=== PATIENT | female | born 1995 | race American Indian/Alaskan Native ===

== ENCOUNTER → 2018-05-31 | Outpatient (CLI) | payer OTHER ==
[~2018-05-31] MED LIST: Colace250 MG PO; IBUP800 PO; OXYACE5T PO; Veetids 500500 MG PO; Verotin-Gr Cap1 EACH PO
== END | disposition home or self-care (01) ==
LOC: LAB SHORT 16:57 → LAB 16:57
DX: Z34.80 Encounter for supervision of other normal pregnancy, unspecified trimester (principal)
CPT/HCPCS: 87081; 87653

== ENCOUNTER 2018-08-02 19:29 | Emergency (ER) | payer OTHER ==
[~2018-08-02] VITALS: Ht 162.6 cm; Wt 53.5 kg
[~2018-08-02 19:29] MED LIST changes: +FERSU90EL PO
[2018-08-02 20:15] LABS: BASOPHILS ABSOLUTE AUTO 0.03 K/mm3 (0.00-0.23); BASOPHILS PERCENT AUTO 0 % (0-2); EOSINOPHILS ABSOLUTE AUTO 0.15 K/mm3 (0.00-0.68); EOSINOPHILS PERCENT AUTO 1 % (0-6); Hematocrit 37.1 % (33.0-51.0); Hemoglobin 12.2 g/dL (11.5-16.0); IMMATURE GRAN ABSOLUTE AUTO 0.04 K/mm3 (0.00-0.10); IMMATURE GRAN PERCENT AUTO 0 % (0-1); LYMPHOCYTES ABSOLUTE AUTO 1.93 K/mm3 (0.84-5.20); LYMPHOCYTES PERCENT AUTO 15 % (21-46); MONOCYTES ABSOLUTE AUTO 0.98 K/mm3 (0.16-1.47); MONOCYTES PERCENT AUTO 8 % (4-13); Mean Corpuscular HGB 30.1 pg (26.0-34.0); Mean Corpuscular HGB Conc 32.9 g/dL (31.5-36.5); Mean Corpuscular Volume 92 fL (80-100); Mean Platelet Volume 9.9 fL (9.1-12.4); NEUTROPHILS ABSOLUTE AUTO 9.37 K/mm3 (1.96-9.15); NEUTROPHILS PERCENT AUTO 75 % (41-73); Platelet Count 224 K/mm3 (150-400); RDW Coefficient Variation 12.8 % (11.7-14.2); RDW Standard Deviation 43.2 fL (35.1-46.3); Red Blood Cell Count 4.05 M/mm3 (3.80-5.20)
[2018-08-02 20:27] LABS: Alanine Aminotransfer (ALT/SGP 25 U/L (12-78); Albumin, Blood 3.8 g/dL (3.4-5.0); Albumin/Globulin Ratio 1.1 (0.8-1.8); Alk Phos 112 U/L (50-136); Anion Gap 8 mmol/L (6-16); Aspartate Aminotrans (AST/SGOT 17 U/L (12-37); Bilirubin, Total 0.4 mg/dL (0.1-1.0); Blood Urea Nitrogen 7 mg/dL (8-24); CO2, Blood 25 mmol/L (21-32); Calcium, Blood 8.8 mg/dL (8.5-10.1); Chloride, Blood 106 mmol/L (98-108); Globulin, Blood 3.5 g/dL (2.2-4.0); Glomerular Filtration Rate >60 (60-); Glucose, Blood 93 mg/dL (70-99); Potassium, Blood 3.2 mmol/L (3.5-5.5); Sodium, Blood 139 mmol/L (136-145); Total Protein, Blood 7.3 g/dL (6.4-8.2)
[2018-08-02 20:29] LABS: Source, Urine Clean Catch
[2018-08-02 20:38] LABS: Bilirubin, Urine Neg (Neg); Blood, Urine 5+ (Neg); Glucose Qualitative, Urine Neg (Neg); Ketones, Urine Neg (Neg); Leukocyte Esterase, Urine 3+ (Neg); Nitrite, Urine Pos (Neg); Protein, Urine 3+ (Neg); Specific Gravity, Urine 1.015 (1.003-1.022); Urobilinogen, Urine NORM (Normal)
[2018-08-02 20:44] LABS: Appearance, Urine Turbid (Clear); Color, Urine Yellow (P-Yellow)
[2018-08-02 20:45] LABS: White Blood Cells, Urine TNTC /hpf (0-5)
[2018-08-02 20:51] LABS: Bacteria Many /hpf; Mucus Light (0-Heavy); Squamous Epithelial Cells Few /hpf (Few)
[2018-08-02] MEDS ORDERED: CEFD300 PO (21:32)
== END 2018-08-02 22:17 | disposition home or self-care (01) ==
LOC: ER 19:29
PROVIDERS: Emergency Medicine
DX: N12 Tubulo-interstitial nephritis, not specified as acute or chronic (principal); F17.210 Nicotine dependence, cigarettes, uncomplicated; Z91.048 Other nonmedicinal substance allergy status; Z91.011 Allergy to milk products; Z79.899 Other long term (current) drug therapy
CPT/HCPCS: 36415; 80053; 81001; 81025; 85025; 87077; 87086; 87186; 93005; 93010; 96361; 96365; 99284-25; J0696; J7030

== ENCOUNTER → 2019-02-26 | Outpatient (CLI) | payer OTHER ==
[~2019-02-26] MED LIST changes: +CEFD300 PO
[2019-03-01 02:09] LABS: CHLAMYDIA TRACHOMATIS, NAA Negative (Negative); NEISSERIA GONORRHOEAE, NAA Negative (Negative)
== END | disposition home or self-care (01) ==
LOC: LAB SHORT 15:18 → LAB 15:18
PROVIDERS: Advanced Practice Midwife
DX: Z11.3 Encounter for screening for infections with a predominantly sexual mode of transmission (principal)
CPT/HCPCS: 87491; 87591

== ENCOUNTER 2019-06-24 15:09 | Inpatient (IN) | payer OTHER ==
[~2019-06-24] VITALS: Ht 162.6 cm; Wt 62.5 kg
[2019-06-24 15:53] LABS: BASOPHILS ABSOLUTE AUTO 0.02 K/mm3 (0.00-0.23); BASOPHILS PERCENT AUTO 0 % (0-2); EOSINOPHILS ABSOLUTE AUTO 0.14 K/mm3 (0.00-0.68); EOSINOPHILS PERCENT AUTO 1 % (0-6); Hematocrit 38.1 % (33.0-51.0); Hemoglobin 12.7 g/dL (11.5-16.0); IMMATURE GRAN ABSOLUTE AUTO 0.06 K/mm3 (0.00-0.10); IMMATURE GRAN PERCENT AUTO 1 % (0-1); LYMPHOCYTES ABSOLUTE AUTO 2.09 K/mm3 (0.84-5.20); LYMPHOCYTES PERCENT AUTO 19 % (21-46); MONOCYTES ABSOLUTE AUTO 0.79 K/mm3 (0.16-1.47); MONOCYTES PERCENT AUTO 7 % (4-13); Mean Corpuscular HGB 31.1 pg (26.0-34.0); Mean Corpuscular HGB Conc 33.3 g/dL (31.5-36.5); Mean Corpuscular Volume 93 fL (80-100); Mean Platelet Volume 11.6 fL (9.1-12.4); NEUTROPHILS ABSOLUTE AUTO 7.78 K/mm3 (1.96-9.15); NEUTROPHILS PERCENT AUTO 71 % (41-73); Platelet Count 237 K/mm3 (150-400); RDW Coefficient Variation 13.6 % (11.7-14.2); RDW Standard Deviation 46.3 fL (35.1-46.3); Red Blood Cell Count 4.08 M/mm3 (3.80-5.20); White Blood Cell Count 10.88 K/mm3 (4.00-11.30)
[2019-06-24] MEDS ORDERED: PRENATAL TABLE1 EAC2 (16:02)
[2019-06-24 18:58] LABS: U Amphetamine Screen Not Detected; U Barbituate Screen Not Detected; U Benzodiazapine Screen Not Detected; U Buprenorphine Screen Not Detected; U Cannabinoids Screen DETECTED; U Cocaine Screen Not Detected; U Methadone Screen Not Detected; U Methamphetamine Screen Not Detected; U Opiates Screen Not Detected; U Oxycodone Screen Not Detected; U Phencyclidine Screen Not Detected; U Propoxyphene Screen Not Detected
--- NOTE | 2019-06-25 08:03 | NUR ---
talked to mom about not bathing baby at this time until we are done checking blood sugars. that studies show that not bathing baby will help with regulating blood sugars. mom is fine waiting to bath baby if it will help
[2019-06-25 12:58] LABS: Hematocrit 33.9 % (33.0-51.0); Hemoglobin 11.3 g/dL (11.5-16.0); Mean Corpuscular HGB 31.4 pg (26.0-34.0); Mean Corpuscular HGB Conc 33.3 g/dL (31.5-36.5); Mean Corpuscular Volume 94 fL (80-100); Mean Platelet Volume 11.4 fL (9.1-12.4); Platelet Count 197 K/mm3 (150-400); RDW Coefficient Variation 13.6 % (11.7-14.2); RDW Standard Deviation 46.3 fL (35.1-46.3); White Blood Cell Count 14.65 K/mm3 (4.00-11.30)
--- NOTE | 2019-06-25 20:44 | NUR ---
06-25-191999 BABY ASLEEP IN BED WITH MOM, PT AWAKENED AND BABY MOVED TO CRIB AND ENCOURAGE PT TO FOLLOW THE NO [facility]LEEP[facility] POLICY
--- NOTE | 2019-06-26 00:20 | NUR ---
06-26-19 0015 MOM ASLEEP WITH BABY ASLEEP IN HER ARMS. AWAKENED MOM AND ASKED IF i COULD PLACE BABY IN CRIB AND AGAIN, REMINDFED HER TO NOT CO-SLEEP FOR BABY SAFTY
[2019-06-26] MEDS ORDERED: IBUP800 PO (09:52)
--- NOTE | 2019-06-26 13:09 | NUR ---
DISCHARGE INSTRUCTIONS REVIEWED WITH PATIENT, MATERNAL AND TEACHING DONE. PATIENT VERBALIZED UNDERSTANDING, DENIES ANY FURTHER QUESTIONS OR CONCERNS. BANDS MATCHED.
--- NOTE | 2019-06-28 14:16 | NUR ---
CANCELLED [facility] VISIT TODAY DUE TO NO RIDE, AND CAN'T GET A RIDE UNTIL MONDAY, APPT RESCHEDULED TO 1099. SHE STATES HER MILK IS IN, BABY HAS A GOOD LATCH, AND HE IS BF FOR ABOUT 10 MINUTES Q1-2 HOURS, STOOLS ARE STILL DARK. STATES EYES ARE WHITE, SKIN MOSTLY PINK, DOESN'T LOOK YELLOW. INSTRUCT TO CALL IF SHE CAN GET A RIDE EARLIER THAN MONDAY AND WE WILL FIT AN APPT IN.
--- NOTE | 2019-07-02 10:00 | NUR ---
LATE ENTRY PER TELEVISION MAINTENANCE WORKER MISTI MARCIAL PATIENT CALLED AT 1000 TO SAY WAS RUNNING LATE WOULD BE HERE, WANTED TO MAKE SURE WE WOULD SEE HER IF LATE. WAS TOLD YES WE WOULD STILL SEE THEM.
--- NOTE | 2019-07-02 14:00 | NUR ---
LATE ENTRY PER [facility] SREE MEJIAS PATIENT NEVER SHOWED, TRIED TO CALL HER ON HER LISTED CELLPHONE [phone] NO ANSWER AND VOICE MAIL NOT SET UP
--- NOTE | 2019-07-03 08:46 | NUR ---
24 HOUR HOTLINE NOTIFIED THAT PT WAS CLEARED AT DISCHARGE BY CPS, SCHEDULED FOLLOW UP APPOINTMENT PER DR ORDER AT DISCHARGE FOR 48 HOUR APPOINTMENT RELATED TO JAUNDICE LEVEL MORE THAN 75% WAS 5% WEIGHT LOSS AT DISCHARGE AND CSD WORKER EDUARDO OLGUIN. PT CANCELED 06/28 APPOINTMENT R/T NO RIDE RESCHEDULED TELEPHONE CONSULTATION DONE R/T BABY STATUS, CHANGED APPOINTMENT TO 07/02 PER PT 1ST DAY TO HAVE A RIDE, REQUESTED PATIENT TO CALL IF ABLE TO COME SOONER WE WOULD FIT HER IN. PT CALLED 07/02 AT 1000 1 HOUR BEFORE SCHEDULED APPOINTMENT TO SAY SHE WOULD BE LATE AND WOULD WE STILL SEE THEM, WE TOLD HER YES TO COME IN. NEVER SHOWED PEG RANDELL BALBUENA LC IN CLINIC ATTEMPTED TO CALL PT - NO ANSWER AND VOICE MAIL NOT SET UP
--- NOTE | 2019-07-08 16:11 | NUR ---
[facility] SPOKE WITH EDUARDO AT [facility] RELATED TO APPOINTMENTS THAT WERE MISSED AND NO SHOWS
== END 2019-06-26 13:05 | disposition home or self-care (01) | DRG 807 ==
LOC: BC 15:09 → OBS 15:09 → BC 15:10 → OBS 15:10 → BC 19:23
PROVIDERS: ADMIT Advanced Practice Midwife
PROC: 10E0XZZ Delivery of Products of Conception, External Approach (ICD-10-PCS; principal; 2019-06-25)
PROC: 3E0R3BZ Introduction of Anesthetic Agent into Spinal Canal, Percutaneous Approach (ICD-10-PCS; 2019-06-25)
DX: O36.5930 Maternal care for other known or suspected poor fetal growth, third trimester, not applicable or unspecified (principal); Z37.0 Single live birth; Z3A.39 39 weeks gestation of pregnancy; O99.334 Smoking (tobacco) complicating childbirth; F17.210 Nicotine dependence, cigarettes, uncomplicated
CPT/HCPCS: 36415; 51702; 85025; 85027; J2001; J2210; J2590; J3010; J7120

== ENCOUNTER 2019-12-14 12:52 | Emergency (ER) | payer OTHER ==
[~2019-12-14] VITALS: Ht 162.6 cm; Wt 56.2 kg
[~2019-12-14 12:52] MED LIST changes: +PRENATAL TABLE1 EAC2
[2019-12-14 13:27] LABS: BASOPHILS ABSOLUTE AUTO 0.03 K/mm3 (0.00-0.23); BASOPHILS PERCENT AUTO 0 % (0-2); EOSINOPHILS ABSOLUTE AUTO 0.14 K/mm3 (0.00-0.68); EOSINOPHILS PERCENT AUTO 1 % (0-6); Hematocrit 38.9 % (33.0-51.0); Hemoglobin 12.5 g/dL (11.5-16.0); IMMATURE GRAN ABSOLUTE AUTO 0.05 K/mm3 (0.00-0.10); IMMATURE GRAN PERCENT AUTO 0 % (0-1); LYMPHOCYTES ABSOLUTE AUTO 1.44 K/mm3 (0.84-5.20); LYMPHOCYTES PERCENT AUTO 10 % (21-46); MONOCYTES ABSOLUTE AUTO 0.43 K/mm3 (0.16-1.47); MONOCYTES PERCENT AUTO 3 % (4-13); Mean Corpuscular HGB 30.6 pg (26.0-34.0); Mean Corpuscular HGB Conc 32.1 g/dL (31.5-36.5); Mean Corpuscular Volume 95 fL (80-100); Mean Platelet Volume 10.4 fL (9.1-12.4); NEUTROPHILS ABSOLUTE AUTO 11.69 K/mm3 (1.96-9.15); NEUTROPHILS PERCENT AUTO 85 % (41-73); Platelet Count 188 K/mm3 (150-400); RDW Coefficient Variation 12.2 % (11.7-14.2); RDW Standard Deviation 43.1 fL (35.1-46.3); Red Blood Cell Count 4.08 M/mm3 (3.80-5.20); White Blood Cell Count 13.78 K/mm3 (4.00-11.30)
[2019-12-14 13:34] LABS: Alanine Aminotransfer (ALT/SGP 16 U/L (12-78); Albumin, Blood 3.8 g/dL (3.4-5.0); Albumin/Globulin Ratio 1.2 (0.8-1.8); Alk Phos 93 U/L (50-136); Anion Gap 5 mmol/L (6-16); Aspartate Aminotrans (AST/SGOT 14 U/L (12-37); Bilirubin, Total 0.3 mg/dL (0.1-1.0); Blood Urea Nitrogen 13 mg/dL (8-24); Bun/Creatinine Ratio 24.3 (12.0-20.0); CO2, Blood 21 mmol/L (21-32); Calcium, Blood 8.2 mg/dL (8.5-10.1); Chloride, Blood 116 mmol/L (98-108); Creatinine, Blood 0.54 mg/dL (0.40-1.00); Globulin, Blood 3.3 g/dL (2.2-4.0); Glomerular Filtration Rate >60 (60-); Glucose, Blood 80 mg/dL (70-99); Potassium, Blood 4.3 mmol/L (3.5-5.5); Sodium, Blood 142 mmol/L (136-145); Total Protein, Blood 7.1 g/dL (6.4-8.2)
[2019-12-14 14:26] LABS: Source, Urine Clean Catch
[2019-12-14 14:30] LABS: Appearance, Urine Clear (Clear); Bilirubin, Urine Neg (Neg); Blood, Urine 1+ (Neg); Color, Urine Yellow (P-Yellow); Glucose Qualitative, Urine Neg (Neg); Ketones, Urine Neg (Neg); Leukocyte Esterase, Urine Neg (Neg); Nitrite, Urine Neg (Neg); Protein, Urine Neg (Neg); Urobilinogen, Urine NORM (Normal)
[2019-12-14 15:31] LABS: Bacteria Few /hpf; Squamous Epithelial Cells Mod /hpf (Few); White Blood Cells, Urine 0-2 /hpf (0-5)
== END 2019-12-14 15:35 | disposition home or self-care (01) ==
LOC: ER 12:52
PROVIDERS: Emergency Medicine
DX: R55 Syncope and collapse (principal); Z88.8 Allergy status to other drugs, medicaments and biological substances
CPT/HCPCS: 36415; 80053; 81001; 85025; 93005; 93010; 99284-25

== ENCOUNTER → 2020-10-14 | Outpatient (CLI) | payer OTHER ==
[~2020-10-14] MED LIST changes: +Flonase 0.05% N16 GM
[2020-10-16 01:08] LABS: CHLAMYDIA TRACHOMATIS, NAA Negative (Negative)
== END | disposition home or self-care (01) ==
LOC: LAB 14:13
PROVIDERS: Advanced Practice Midwife
DX: Z01.419 Encounter for gynecological examination (general) (routine) without abnormal findings (principal); Z11.3 Encounter for screening for infections with a predominantly sexual mode of transmission
CPT/HCPCS: 87491; 87591; G0123

== ENCOUNTER → 2020-11-30 | Outpatient (CLI) | payer OTHER ==
[2020-11-30 15:39] LABS: BASOPHILS ABSOLUTE AUTO 0.03 K/mm3 (0.00-0.23); BASOPHILS PERCENT AUTO 0 % (0-2); EOSINOPHILS ABSOLUTE AUTO 0.24 K/mm3 (0.00-0.68); EOSINOPHILS PERCENT AUTO 2 % (0-6); Hematocrit 34.8 % (33.0-51.0); IMMATURE GRAN ABSOLUTE AUTO 0.06 K/mm3 (0.00-0.10); IMMATURE GRAN PERCENT AUTO 1 % (0-1); LYMPHOCYTES ABSOLUTE AUTO 1.66 K/mm3 (0.84-5.20); LYMPHOCYTES PERCENT AUTO 16 % (21-46); MONOCYTES ABSOLUTE AUTO 0.76 K/mm3 (0.16-1.47); MONOCYTES PERCENT AUTO 7 % (4-13); Mean Corpuscular HGB 30.1 pg (26.0-34.0); Mean Corpuscular HGB Conc 31.6 g/dL (31.5-36.5); Mean Corpuscular Volume 95 fL (80-100); Mean Platelet Volume 10.6 fL (9.1-12.4); NEUTROPHILS ABSOLUTE AUTO 7.97 K/mm3 (1.96-9.15); NEUTROPHILS PERCENT AUTO 74 % (41-73); Platelet Count 268 K/mm3 (150-400); RDW Coefficient Variation 13.8 % (11.7-14.2); RDW Standard Deviation 48.1 fL (35.1-46.3); Red Blood Cell Count 3.66 M/mm3 (3.80-5.20); White Blood Cell Count 10.72 K/mm3 (4.00-11.30)
== END | disposition home or self-care (01) ==
LOC: LAB 14:18
PROVIDERS: Advanced Practice Midwife
DX: O09.92 Supervision of high risk pregnancy, unspecified, second trimester (principal)
CPT/HCPCS: 82950; 85025

== ENCOUNTER 2021-02-18 05:46 | Inpatient (IN) | payer OTHER ==
[~2021-02-18] VITALS: Ht 162.6 cm; Wt 71.3 kg
[~2021-02-18 05:46] MED LIST changes: -Flonase 0.05% N16 GM
[2021-02-18 06:31] LABS: BASOPHILS ABSOLUTE AUTO 0.04 K/mm3 (0.00-0.23); BASOPHILS PERCENT AUTO 0 % (0-2); EOSINOPHILS ABSOLUTE AUTO 0.28 K/mm3 (0.00-0.68); EOSINOPHILS PERCENT AUTO 2 % (0-6); Hemoglobin 11.2 g/dL (11.5-16.0); IMMATURE GRAN ABSOLUTE AUTO 0.15 K/mm3 (0.00-0.10); IMMATURE GRAN PERCENT AUTO 1 % (0-1); LYMPHOCYTES ABSOLUTE AUTO 2.41 K/mm3 (0.84-5.20); LYMPHOCYTES PERCENT AUTO 20 % (21-46); MONOCYTES ABSOLUTE AUTO 0.92 K/mm3 (0.16-1.47); MONOCYTES PERCENT AUTO 8 % (4-13); Mean Corpuscular HGB 29.8 pg (26.0-34.0); Mean Corpuscular HGB Conc 32.9 g/dL (31.5-36.5); Mean Corpuscular Volume 90 fL (80-100); NEUTROPHILS ABSOLUTE AUTO 8.49 K/mm3 (1.96-9.15); NEUTROPHILS PERCENT AUTO 69 % (41-73); Platelet Count 266 K/mm3 (150-400); RDW Standard Deviation 52.2 fL (35.1-46.3); Red Blood Cell Count 3.76 M/mm3 (3.80-5.20); White Blood Cell Count 12.29 K/mm3 (4.00-11.30)
[2021-02-18 08:07] LABS: U Amphetamine Screen Not Detected; U Barbituate Screen Not Detected; U Benzodiazapine Screen Not Detected; U Buprenorphine Screen Not Detected; U Cannabinoids Screen DETECTED; U Cocaine Screen Not Detected; U Methadone Screen Not Detected; U Methamphetamine Screen Not Detected; U Opiates Screen Not Detected; U Oxycodone Screen Not Detected; U Phencyclidine Screen Not Detected; U Propoxyphene Screen Not Detected
[2021-02-19 06:05] LABS: Hematocrit 31.8 % (33.0-51.0); Hemoglobin 10.2 g/dL (11.5-16.0); Mean Corpuscular HGB 29.5 pg (26.0-34.0); Mean Corpuscular HGB Conc 32.1 g/dL (31.5-36.5); Mean Corpuscular Volume 92 fL (80-100); Mean Platelet Volume 11.1 fL (9.1-12.4); Platelet Count 231 K/mm3 (150-400); RDW Coefficient Variation 16.3 % (11.7-14.2); RDW Standard Deviation 54.1 fL (35.1-46.3); Red Blood Cell Count 3.46 M/mm3 (3.80-5.20); White Blood Cell Count 13.23 K/mm3 (4.00-11.30)
--- NOTE | 2021-02-19 10:39 | NUR ---
02-19-21 0730 woke pt up to bring in her breakfast and do morning assessment, pt c/o headache that she has just noted. Pt stated she was going to try to sleep a bit more while baby was sleeping
--- NOTE | 2021-02-19 10:50 | NUR ---
02/19/21 0800 pt medicated with Tylenol 1000mg po and given ice back for back of her neck 0830 pt staes that pain medicind did not help at all, encouraged po fluids and eating [address] Carrizales consulted about possible spinal headache as pt now states that along with her headache worsening, she also feels like her ears are plugged "like shes underwater" and her vision is slightly blurry. plan to do blood patch by Dr Carrizales 1020 pt sitting on side of bed for procedure, LR infusing, blood collected by sterile and handed to Dr Carrizales for procedure. 1030 pt laying down flat, IV infusing VS Q15 min
--- NOTE | 2021-02-19 11:58 | NUR ---
02-19-21 1040 after HOB slowly raised, pt ambulated to BR with no problems, denies headache, visual disturbances, or plugged ears
--- NOTE | 2021-02-19 17:58 | NUR ---
02/19/21 0900 RECIEVED CALLS FROM 3 DIFFERENT CPS WORKERS ASKING WHAT TIME BABY WILL BE DISCHARGED TODAY, THAT THEY ARE PLANNING TO TAKE BABY INTO [facility]UST[facility]. THEY WERE TOLD THAT THE BABY WILL BE 24 HOURS AT 1430 AND AFTER THE 24 HR TESTING IS DONE AND RESULTS CALLED TO , THEN THE BABY CAN BE DISCHARGED. 1310 RN INTO ROOM TO SIT WITH BABY WHILE MOM ON A COURT CALL. 1330 LEAH JACKSON CPS WORKER HERE AND AWAITING BABYS DISCHARGE 1430 RN INTO ROOM TO DO BABY 24 HOUR TESTING WHILE MOM CONTINUES ON PHONE CALL WITH COURT 1530 MOMS PHONE CALL FINISHED, PREPARATIONS FOR DISCHARGE, MOM UNAWARE THAT CPS HERE 1630 DC INSTRUCTIONS TO MOM AND CPS WORKER INTO ROOM WITH SECURITY STANDING IN GUPTA IF NEEDED. MOM VERY EMOTIONAL AND SAID "YOURE NOT GOING TO LET ME TAKE HIM HOME ARE YOU? i COULD PUNCH YOU. IM GOING TO TAKE MY TIME." RN AND WORKER SAID THAT SHE COULD TAKE LONG SHE NEEDED. 1650 MOM DISCHARGED, AND ESCORTED OUT TO MEET SO AT ENTRANCE 1700 BABY GIVEN THOROUGH BATH, HUGS ALARM OFF, DIAPERED CHANGED, INSTRUCTIONS GIVEN TO WORKER, APPOINTMENT TO FOLLOW UP AT [facility], AND INSTRUCTIONS SIGNED BY LEAH JACKSON CPS WORKER 1725 CPS WORKER AND BABY ESCORTED TO FRONT ENTRANCE AND DISCHARGED
[2021-05-10] MEDS ORDERED: Flonase 0.05% N16 GM (11:16)
== END 2021-02-19 16:50 | disposition home or self-care (01) | DRG 805 ==
LOC: OBS 05:46 → BC 05:47 → OBS 05:55 → BC 05:56
PROVIDERS: ADMIT Advanced Practice Midwife
PROC: 10E0XZZ Delivery of Products of Conception, External Approach (ICD-10-PCS; principal; 2021-02-18)
PROC: 3E033VJ Introduction of Other Hormone into Peripheral Vein, Percutaneous Approach (ICD-10-PCS; 2021-02-18)
PROC: 10907ZC Drainage of Amniotic Fluid, Therapeutic from Products of Conception, Via Natural or Artificial Opening (ICD-10-PCS; 2021-02-18)
PROC: 8E0ZXY6 Isolation (ICD-10-PCS; 2021-02-18)
PROC: 3E0R3BZ Introduction of Anesthetic Agent into Spinal Canal, Percutaneous Approach (ICD-10-PCS; 2021-02-18)
PROC: 00HU33Z Insertion of Infusion Device into Spinal Canal, Percutaneous Approach (ICD-10-PCS; 2021-02-18)
DX: O99.824 Streptococcus B carrier state complicating childbirth (principal); U07.1 COVID-19; Z37.0 Single live birth; O98.52 Other viral diseases complicating childbirth; O36.5930 Maternal care for other known or suspected poor fetal growth, third trimester, not applicable or unspecified; O69.81X0 Labor and delivery complicated by cord around neck, without compression, not applicable or unspecified; Z3A.39 39 weeks gestation of pregnancy; O89.4 Spinal and epidural anesthesia-induced headache during the puerperium; O99.334 Smoking (tobacco) complicating childbirth; F17.210 Nicotine dependence, cigarettes, uncomplicated
CPT/HCPCS: 0241U; 36415; 51702; 85025; 85027; 86850; 86900; 86901; A9270; G0480; J0290; J1885; J2001; J2210; J2405; J2590; J3010; J7120

== ENCOUNTER → 2022-11-21 | Outpatient (CLI) | payer OTHER ==
[~2022-11-21] MED LIST changes: +Flonase 0.05% N16 GM; +PRENATAL TABLE1 EAC2 PO
[2022-11-23 01:10] LABS: CHLAMYDIA TRACHOMATIS, NAA Negative (Negative)
== END | disposition home or self-care (01) ==
LOC: LAB SHORT 09:00 → LAB 09:00
PROVIDERS: Obstetrics & Gynecology
DX: O09.893 Supervision of other high risk pregnancies, third trimester (principal)
CPT/HCPCS: 87081; 87150; 87491; 87591

== ENCOUNTER 2022-11-22 22:33 | Inpatient (IN) | payer OTHER ==
[~2022-11-22] VITALS: Ht 162.6 cm; Wt 70.5 kg
[~2022-11-22 22:33] MED LIST changes: -PRENATAL TABLE1 EAC2 PO
[2022-11-22] MEDS ORDERED: PRENATAL TABLE1 EAC2 PO (23:25)
--- NOTE | 2022-11-22 23:45 | NUR ---
2237 BLOOD PRESSURE AND PULSE. PT ON FACETIME WITH PARTNER AND MOVING AROUND. BLOOD PRESSURE WAS RETAKEN AND WAS WNL
[2022-11-23 02:15] LABS: U Amphetamine Screen Not Detected; U Barbituate Screen Not Detected; U Benzodiazapine Screen Not Detected; U Buprenorphine Screen Not Detected; U Cannabinoids Screen DETECTED; U Cocaine Screen Not Detected; U Methadone Screen Not Detected; U Methamphetamine Screen Not Detected; U Opiates Screen Not Detected; U Oxycodone Screen Not Detected; U Phencyclidine Screen Not Detected; U Propoxyphene Screen Not Detected
[2022-11-23 12:50] LABS: BASOPHILS ABSOLUTE AUTO 0.03 K/mm3 (0.00-0.23); BASOPHILS PERCENT AUTO 0 % (0-2); EOSINOPHILS ABSOLUTE AUTO 0.21 K/mm3 (0.00-0.68); EOSINOPHILS PERCENT AUTO 1 % (0-6); Hematocrit 29.1 % (33.0-51.0); Hemoglobin 9.9 g/dL (11.5-16.0); IMMATURE GRAN ABSOLUTE AUTO 0.18 K/mm3 (0.00-0.10); IMMATURE GRAN PERCENT AUTO 1 % (0-1); LYMPHOCYTES ABSOLUTE AUTO 2.37 K/mm3 (0.84-5.20); LYMPHOCYTES PERCENT AUTO 14 % (21-46); MONOCYTES ABSOLUTE AUTO 1.14 K/mm3 (0.16-1.47); MONOCYTES PERCENT AUTO 7 % (4-13); Mean Corpuscular HGB 30.3 pg (26.0-34.0); Mean Corpuscular Volume 89 fL (80-100); Mean Platelet Volume 10.8 fL (9.1-12.4); NEUTROPHILS ABSOLUTE AUTO 13.29 K/mm3 (1.96-9.15); NEUTROPHILS PERCENT AUTO 77 % (41-73); Platelet Count 252 K/mm3 (150-400); RDW Coefficient Variation 13.9 % (11.7-14.2); RDW Standard Deviation 45.2 fL (35.1-46.3); Red Blood Cell Count 3.27 M/mm3 (3.80-5.20); White Blood Cell Count 17.22 K/mm3 (4.00-11.30)
--- NOTE | 2022-11-24 11:19 | NUR ---
11:10 PRINTED DISCHARGE INSTRUCTIONS AND REVIEWED WITH PATIENT. DENIESADDITIONAL QUESTIONS AND CONCERNS. IB BANDS MATCHED WITH AND VERIFICATION FORM. VS STABLE
== END 2022-11-24 11:10 | disposition home or self-care (01) | DRG 806 ==
LOC: OBS 22:33 → BC 22:34 → OBS 22:38 → BC 22:39
PROVIDERS: ADMIT Family Medicine
PROC: 10E0XZZ Delivery of Products of Conception, External Approach (ICD-10-PCS; principal; 2022-11-22)
PROC: 10907ZC Drainage of Amniotic Fluid, Therapeutic from Products of Conception, Via Natural or Artificial Opening (ICD-10-PCS; 2022-11-22)
DX: O48.0 Post-term pregnancy (principal); O99.324 Drug use complicating childbirth; Z37.0 Single live birth; O99.334 Smoking (tobacco) complicating childbirth; F17.210 Nicotine dependence, cigarettes, uncomplicated; F12.10 Cannabis abuse, uncomplicated; Z3A.40 40 weeks gestation of pregnancy; Z79.52 Long term (current) use of systemic steroids; O09.33 Supervision of pregnancy with insufficient antenatal care, third trimester
CPT/HCPCS: 36415; 85025; A9270

== ENCOUNTER → 2024-08-23 | Outpatient (CLI) | payer OTHER ==
[~2024-08-23] MED LIST changes: +PRENATAL TABLE1 EAC2 PO
[2024-08-23 13:12] LABS: Source, Urine Clean Catch
[2024-08-23 15:27] LABS: U Cannabinoids Screen DETECTED
[2024-08-23 15:28] LABS: U Amphetamine Screen Not Detected; U Barbituate Screen Not Detected; U Benzodiazapine Screen Not Detected; U Buprenorphine Screen Not Detected; U Cocaine Screen Not Detected; U Methadone Screen Not Detected; U Methamphetamine Screen Not Detected; U Opiates Screen Not Detected; U Oxycodone Screen Not Detected; U Phencyclidine Screen Not Detected
[2024-08-23 15:48] LABS: Squamous Epithelial Cells Few /hpf (Few); White Blood Cells, Urine 0-2 /hpf (0-5)
[2024-08-23 15:49] LABS: Bacteria Mod /hpf
[2024-08-27 20:06] LABS: 11-NOR-9-CARBOXY-THC,URN,QUANT >500 ng/mL
== END | disposition home or self-care (01) ==
LOC: LAB SHORT 13:08 → LAB 13:08
PROVIDERS: Obstetrics & Gynecology
DX: Z34.81 Encounter for supervision of other normal pregnancy, first trimester (principal)
CPT/HCPCS: 81015; 87086; G0480

== ENCOUNTER → 2024-11-12 | Outpatient (CLI) | payer OTHER ==
[2024-11-12 10:47] LABS: Source, Urine Clean Catch
[2024-11-12 14:20] LABS: Appearance, Urine Clear (Clear); Bilirubin, Urine Neg (Neg); Blood, Urine Neg (Neg); Color, Urine Yellow (P-Yellow); Glucose Qualitative, Urine Neg (Neg); Ketones, Urine Neg (Neg); Leukocyte Esterase, Urine Neg (Neg); Nitrite, Urine Neg (Neg); Protein, Urine Neg (Neg); Specific Gravity, Urine 1.015 (1.003-1.022); Urobilinogen, Urine NORM (Normal)
[2024-11-12 14:21] LABS: BASOPHILS ABSOLUTE AUTO 0.03 K/mm3 (0.00-0.23); BASOPHILS PERCENT AUTO 0 % (0-2); EOSINOPHILS ABSOLUTE AUTO 0.15 K/mm3 (0.00-0.68); EOSINOPHILS PERCENT AUTO 1 % (0-6); Hematocrit 34.7 % (33.0-51.0); Hemoglobin 11.8 g/dL (11.5-16.0); IMMATURE GRAN ABSOLUTE AUTO 0.04 K/mm3 (0.00-0.10); IMMATURE GRAN PERCENT AUTO 0 % (0-1); LYMPHOCYTES ABSOLUTE AUTO 1.61 K/mm3 (0.84-5.20); LYMPHOCYTES PERCENT AUTO 14 % (21-46); MONOCYTES ABSOLUTE AUTO 0.54 K/mm3 (0.16-1.47); MONOCYTES PERCENT AUTO 5 % (4-13); Mean Corpuscular HGB 32.4 pg (26.0-34.0); Mean Corpuscular Volume 95 fL (80-100); Mean Platelet Volume 10.4 fL (9.1-12.4); NEUTROPHILS ABSOLUTE AUTO 9.43 K/mm3 (1.96-9.15); NEUTROPHILS PERCENT AUTO 80 % (41-73); Platelet Count 253 K/mm3 (150-400); RDW Standard Deviation 44.9 fL (35.1-46.3); Red Blood Cell Count 3.64 M/mm3 (3.80-5.20)
[2024-11-12 16:30] LABS: Thyroid Stimulating Hormone 1.23 uIU/mL (0.360-4.800)
[2024-11-15 15:51] LABS: HEPATITIS B SURFACE ANTIGEN Negative (Negative)
[2024-11-15 17:48] LABS: HIV 1,2 COMBO ANTIGEN/ANTIBODY Negative (Negative)
[2024-11-15 19:20] LABS: HEPATITIS C AB CIA INTERP Negative (Negative); HEPATITIS C ANTIBODY CIA INDEX 0.05 IV
== END ==
LOC: LAB 10:44 → LAB SHORT 10:44
PROVIDERS: Advanced Practice Midwife
DX: Z34.93 Encounter for supervision of normal pregnancy, unspecified, third trimester (principal)
CPT/HCPCS: 81003; 82950; 84443; 86803; 87086; 87340; 87389

== ENCOUNTER 2025-01-27 06:58 | Inpatient (IN) | payer OTHER ==
[~2025-01-27] VITALS: Ht 162.6 cm; Wt 66.8 kg
[2025-01-27] VITALS (39 sets, daily range): BP systolic 91–188; BP diastolic 51–128
[2025-01-27] MEDS ORDERED: FentaNYL Citrate 50 MCG/ML 2 ML Injection IV PRN (07:10)
[2025-01-27] MEDS ORDERED: FentaNYL 2mcg/ml-Bup 0.1% Epd 250 ML EPI PRN (07:15)
[2025-01-27] MEDS ORDERED: ePHEDrine Sulfate 50 MG/ML 1ML Injection XX PRN (07:15)
[2025-01-27] MEDS ORDERED: Lactated Ringer's 1,000 ML IV SCH ×3 (07:15→14:45)
[2025-01-27] MEDS ORDERED: OXYTOCIN/RINGER'S LACTATE 500 ML IV ONE (07:35)
[2025-01-27] MEDS ORDERED: OXYTOCIN/RINGER'S LACTATE 500 ML IV SCH ×2 (07:35→14:50)
[2025-01-27 07:45] LABS: BASOPHILS ABSOLUTE AUTO 0.05 K/mm3 (0.00-0.23); BASOPHILS PERCENT AUTO 0 % (0-2); EOSINOPHILS ABSOLUTE AUTO 0.22 K/mm3 (0.00-0.68); EOSINOPHILS PERCENT AUTO 2 % (0-6); Hematocrit 32.5 % (33.0-51.0); Hemoglobin 11.2 g/dL (11.5-16.0); IMMATURE GRAN ABSOLUTE AUTO 0.13 K/mm3 (0.00-0.10); IMMATURE GRAN PERCENT AUTO 1 % (0-1); LYMPHOCYTES ABSOLUTE AUTO 2.06 K/mm3 (0.84-5.20); LYMPHOCYTES PERCENT AUTO 16 % (21-46); MONOCYTES ABSOLUTE AUTO 0.79 K/mm3 (0.16-1.47); MONOCYTES PERCENT AUTO 6 % (4-13); Mean Corpuscular HGB 31.5 pg (26.0-34.0); Mean Corpuscular HGB Conc 34.5 g/dL (31.5-36.5); Mean Corpuscular Volume 92 fL (80-100); Mean Platelet Volume 10.5 fL (9.1-12.4); NEUTROPHILS ABSOLUTE AUTO 9.59 K/mm3 (1.96-9.15); NEUTROPHILS PERCENT AUTO 75 % (41-73); Platelet Count 260 K/mm3 (150-400); RDW Coefficient Variation 12.8 % (11.7-14.2); RDW Standard Deviation 42.5 fL (35.1-46.3); Red Blood Cell Count 3.55 M/mm3 (3.80-5.20); White Blood Cell Count 12.84 K/mm3 (4.00-11.30)
[2025-01-27] MEDS ORDERED: FentaNYL Citrate 50 MCG/ML 2 ML Injection ONE (09:52)
[2025-01-27] MEDS ORDERED: ePHEDrine Sulfate 50 MG/ML 1ML Injection IV PRN (10:00)
[2025-01-27] MEDS ORDERED: FentaNYL Cit 2 MCG/ML, 0.1% Bupiv/NS 250ML Epidural EPI PRN (10:05)
[2025-01-27] MEDS ORDERED: Calcium Carbonate 500 MG Tab Chew PO PRN (12:05)
[2025-01-27] MEDS ORDERED: NS 1,000 ML IV ONE (13:51)
[2025-01-27] MEDS ORDERED: NS 1,000 ML BAG IR SCH (14:00)
[2025-01-27] MEDS ORDERED: FLU VACC TS2024-25(6MOS UP)/PF 45 MCG/0.5 ML SYRINGE IM SCH (14:40)
[2025-01-27] MEDS ORDERED: Acetaminophen 325 MG TABLET PO PRN (14:45)
[2025-01-27] MEDS ORDERED: Witch Hazel/Glycerin PADS TOP PRN (14:45)
[2025-01-27] MEDS ORDERED: Benzocaine Topical Anesthetic Spray 60GM TOP PRN (14:45)
[2025-01-27] MEDS ORDERED: Ketorolac Tromethamine 30mg Vial IV PRN (14:45)
[2025-01-27] MEDS ORDERED: Ibuprofen 400 MG Tab PO PRN (14:45)
[2025-01-27] MEDS ORDERED: Rho(D) Immune Globulin 300 MCG / SYR IM ONE (14:45)
[2025-01-27] MEDS ORDERED: Misoprostol 100 MCG Tab PO PRN (14:50)
[2025-01-27] MEDS ORDERED: Lanolin Cream TOP PRN (14:50)
[2025-01-27] MEDS ORDERED: Methylergonovine Maleate 0.2MG / ML 1ML Amp IM PRN (14:50)
[2025-01-27] MEDS ORDERED: OxyCODONE 5 mg/Acetamin 325 mg TABLET PO PRN (14:50)
[2025-01-27] MEDS ORDERED: Docusate Sodium 100 MG Cap PO PRN (14:50)
--- NOTE | 2025-01-27 16:48 | NUR ---
DR BYRD TO BEDSIDE TO SEE PT. PT UP TO BATHROOM WITH ASSISTANCE. DECLINED SHOWER AT THIS TIME. C/O RT LEG FEELING WEAK. AMBULATED BACK TO BED WITH MINIMAL ASSIST.
[2025-01-27] MEDS ORDERED: Ondansetron HCl 2 MG / ML 2ML Vial ONE (17:21)
[2025-01-27] MEDS ORDERED: Ondansetron HCl 2 MG / ML 2ML Vial IV PRN (17:30)
[2025-01-28 00:10] VITALS: BP 128/66
[2025-01-28 04:58] VITALS: BP 83/56
[2025-01-28 07:56] VITALS: BP 111/59
[2025-01-28] MEDS ORDERED: Prenatal Vit/FE Fumarate/FA 1 Tab PO SCH (09:00)
[2025-01-28 11:45] VITALS: BP 104/65
[2025-01-28 15:01] VITALS: BP 123/59
--- NOTE | 2025-01-28 16:00 | NUR ---
pt discharged at this time. walked to the car by staff. baby placed in carseat in vehicle by mother.
== END 2025-01-28 15:50 | disposition home or self-care (01) | DRG 806 ==
LOC: OBS 06:58 → BC 07:01 → OBS 07:11 → BC 07:12
PROVIDERS: ADMIT Advanced Practice Midwife
PROC: 10E0XZZ Delivery of Products of Conception, External Approach (ICD-10-PCS; principal; 2025-01-27)
PROC: 10H07YZ Insertion of Other Device into Products of Conception, Via Natural or Artificial Opening (ICD-10-PCS; 2025-01-27)
PROC: 3E033VJ Introduction of Other Hormone into Peripheral Vein, Percutaneous Approach (ICD-10-PCS; 2025-01-27)
PROC: 10907ZC Drainage of Amniotic Fluid, Therapeutic from Products of Conception, Via Natural or Artificial Opening (ICD-10-PCS; 2025-01-27)
PROC: 3E0S3BZ Introduction of Anesthetic Agent into Epidural Space, Percutaneous Approach (ICD-10-PCS; 2025-01-27)
PROC: 00HU33Z Insertion of Infusion Device into Spinal Canal, Percutaneous Approach (ICD-10-PCS; 2025-01-27)
DX: O48.0 Post-term pregnancy (principal); O99.324 Drug use complicating childbirth; Z37.0 Single live birth; Z3A.40 40 weeks gestation of pregnancy; F12.90 Cannabis use, unspecified, uncomplicated; O69.81X0 Labor and delivery complicated by cord around neck, without compression, not applicable or unspecified; O99.334 Smoking (tobacco) complicating childbirth; F17.210 Nicotine dependence, cigarettes, uncomplicated; O76 Abnormality in fetal heart rate and rhythm complicating labor and delivery; Z86.19 Personal history of other infectious and parasitic diseases
CPT/HCPCS: 51702; 59070; 85025; 86850; 86870; 86900; 86901; 86922; A9270; J1885; J2405; J2590; J7030; J7120